=== PATIENT | male | born 1965 | race Caucasian/White ===

== ENCOUNTER → 2020-06-27 08:47 | Outpatient (CLI) | payer OTHER, SELFPAY ==
[2018-07-19 11:35] VITALS: BMI 29.7
[2020-06-27 10:28] LABS: Absolute Lymphocyte Count 1.54 X10^3/uL (0.83-4.51); Absolute Neutrophil Count 3.6 X10^3/uL (2.0-7.7); Basophil# 0.03 X10^3/uL; Basophil% 0.5 % (0-1); Eosinophil# 0.07 X10^3/uL; Eosinophils% 1.2 % (0-5); Hematocrit 51.3 % (40-54); Lymphocyte # 1.54 X10^3/ul (4.0); Lymphocyte % 26.6 % (19-41); Mean Corp Hgb Conc 33.1 g/dL (32-36); Mean Corpuscular Hgb 29.8 pg (27.0-32.0); Mean Platelet Vol. 11.2 fl (6.2-12.0); Monocyte# 0.52 X10^3/uL; NRBC Flagged by Analyzer 0 % (0-5); Neutrophil % 62.4 % (47-70); Platelet Count 233 K/mm3 (150-450); RBC Distribution Width CV 12.7 % (11.6-14.6); RBC Distribution Width SD 40.9 fl (35.1-43.9); White Blood Count 5.8 K/mm3 (4.4-11.0)
[2020-06-27 11:07] LABS: AST(SGOT) 18 U/L (15-37); Alanine Aminotransfer ALT/SGPT 29 U/L (16-61); Albumin, Serum 3.9 g/dL (3.2-5.0); Alkaline Phosphatase 84 U/L (45-117); Anion Gap 7 (5-15); BUN 12 mg/dL (7-18); BUN/Creat Ratio 10.7 RATIO (10-20); Calcium,Total 9.7 mg/dL (8.5-10.1); Chloride 105 mmol/L (98-107); Cholesterol 262 mg/dL (200); Creatinine, Serum 1.12 mg/dL (0.70-1.30); EST Glomerular Filtration Rate 72 mL/min (>60); Est Glom Filt Rate - Afr Amer 87 mL/min (>60); Globulin 3.8 g/dL (2.2-4.2); Glucose 90 mg/dL (74-106); High Density Lipoprotein 62 mg/dL; Potassium 4.2 mmol/L (3.5-5.1); Protein, Total 7.7 g/dL (6.4-8.2); Sodium Level 141 mmol/L (136-145); Thyroid Stim Hormone (TSH) 1.36 uIU/mL (0.358-3.74); Triglycerides 171 mg/dL; Very Low Density Lipoprotein 34 mg/dL (5-40)
== END ==
PROVIDERS: PCP Family Medicine; Visit Provider Family Medicine
DX: Z00.00 Encounter for general adult medical examination without abnormal findings (principal); M75.92 Shoulder lesion, unspecified, left shoulder; F32.0 Major depressive disorder, single episode, mild
CPT/HCPCS: 36415; 80053; 80061; 84443; 85025

== ENCOUNTER 2020-08-01 07:30 | Outpatient (RCR) | payer OTHER, SELFPAY ==
[2018-07-19 11:35] VITALS: BMI 29.7
--- NOTE | 2020-06-29 10:36 | HP.PTEVAL ---
Patient's Visit Information SAMANTHA LOTT is a 54 year old M referred to Physical Therapy by Dr. Ellie Valenzuela MD with a diagnosis of L shoulder lesion. Date of Evaluation: 06/29/20 Physical Therapist: Myrtle Daniels DPT - Visit Plan Frequency: 2x /Week Duration: 4 Weeks Plan: Signs and symptoms consistent with shoulder impingment- increase scapular stabilization to promote pain free ROM (flex/abd/IR) - Subjective Pt reports L shoulder pain since Jan/Feb- does not think he did anthing specific. Bothersome mostly at night when trying to sleep. hard to put on coat. Pain: superior region of shoulder. 1/10 achey, can be sharp with wrong movement 3-4/10 (overhead and below belt movements). there are some periods of no pain- sitting. denies numbness and tingling, no radiating pain. denies neck pain. sleep: sleeps in various positions, hard to get comfortable, does not wake him up at night. no pillow under arm. painful to put arm up under pillow. Meds: none. 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 has to be more aware of body mechanics- is more painful in abduction lift from ground. PMHx: unremarkable - Objective Posture: FH, RS, unable to maintain proper posture. Palpation: denies pain and tenderness ablong scpaular msucels and joint line. obseration: mild L scapular winging. ROM: shoulder flex/abd: WFL with pain, ER/IR: WFL, fucntional IR: low back bilateral with pain elbow/hand: WFL. Strength: shoulder: 4/5 all planes, elbow: 4+/5, senior qa engineer: 5/5 Scap s/s: poor. Special Tests: Neer's +, empty can+ Carolyn Terence + - Goals Goal 1:: Pt will be I with HEP and progression Goal Time Frame: 4-6 Weeks Goal 2:: Pt will report 1/10 pain for one week in order to promote I functional mobility Goal Time Frame: 4-6 Weeks Goal 3:: Pt will demonstrate improved posture for an entire treatment session in order to promote scpaular stabilization Goal Time Frame: 4-6 Weeks - Rehabilitation Potential Physical Therapy Diagnosis: Pt presents with signs and symtpoms consistent with shoulder impingement with decreased pain-free ROM, strength, and poor posture impacting ability to perform I functional mobility without pain. Rehabilitation Potential: Good - Anticipated Interventions Patient/Client Instruction: Educate patient on: Plan of Care For the Purpose of:: To improve muscle performance and motor function Therapeutic Exercise to Include: Strength training, Power training, Endurance training, Coordination, Body mechanics, Postural training, Flexibilty training, Scapular Strength/Stabilization For the Purpose of:: To increase tolerance to activity/condition/position Cryotherapy (ice pack, ice massage): Yes Thermo therapy (hot pack): Yes Thank you for the opportunity to evaluate your patient. For Medicare and Medicare HMO plans, please review the plan of care and approve it. It will need to be FAXED BACK to us at [phone] for Medicare purposes. For Medicare only, by signing this I certify the plan of care. Please let me know if there are questions or concerns regarding this plan of care. Physician Signature: Date:
--- NOTE | 2020-08-01 07:54 | HP.PTDCSUM ---
It has been my pleasure to treat SAMANTHA LOTT referred by Dr. Ellie Valenzuela MD, with the diagnosis of L shoulder lesion for a total of 10 visit(s). Discharge Date: Please see the following information for a summary of their discharge status. Subjective: Patient reports that the shoulder is a lot better- both able to do more and less pain. Does stil have a little bit pain sleeping or catches if he over extends (1-2/10). If he moves it out of the position it goes away quickly. There is nothing he can't do at this time. Does feel comfortable and confident with the exercises. Left Shoulder Pain Intensity (Out of 10): 0 % Improvement: 80 Objective/Function: Posture: good throughout session. Palpation: denies pain and tenderness ablong scpaular msucels and joint line. obseration: mild L scapular winging. ROM: shoulder flex/abd: WFL no pain, ER/IR: WFL, fucntional IR: equal side to side no pain elbow/hand: WFL. Strength: shoulder: 4+/5 all planes, elbow:5/5, sonar subsystem equipment operator: 5/5 Scap s/s:fair plus. Special Tests: Neer's +, empty can+ Hawkin Terence + Goal 1:: Pt will be I with HEP and progression Goal Progress: Goal Met Goal 2:: Pt will report 1/10 pain for one week in order to promote I functional mobility Goal Progress: Goal Met Goal 3:: Pt will demonstrate improved posture for an entire treatment session in order to promote scpaular stabilization Goal Progress: Goal Met Plan: Discharge to indep home exercise program. Encouraged to call if questions. Gave HEP including green, blue and purple band- ex: mid row, LAE, extension, IR, ER, foward raise, lateral raise, counter PU, prone I,Y,T, ball on wall. If there are questions or concerns regarding this patient's physical therapy, please feel free to call me at [phone]. Thank you for the referral of this patient. Sincerely, Myrtle Daniels DPT
== END 2020-08-01 10:38 | disposition home or self-care (01) ==
LOC: PT 07:30
PROVIDERS: PCP Family Medicine; Referring Provider Family Medicine; Visit Provider Family Medicine
DX: M75.92 Shoulder lesion, unspecified, left shoulder (principal)
CPT/HCPCS: 97110; 97162; 97164; 97530

== ENCOUNTER → 2022-03-15 | Outpatient (CLI) | payer OTHER, SELFPAY ==
--- NOTE | 2022-03-15 09:45 | STEWCON_ITS ---
Reason For Study: Left sided chest pain Stress Results Stress Echocardiogram-Perry Protocol with Protocol: Definity Maximum Predicted HR: 163 bpm Target HR: 139 bpm % Maximum Predicted HR: 92 % DurationHeart Rate Stage (mm:ss) (bpm) BP Comment Baseline 61 140/84pt denies chest pain Stage 1 3:00 95 140/72pt denies chest pain Stage 2 3:00 114 142/68Pt denies chest pain Stage 3 3:00 133 144/78Pt denies chest pain Stage 4 0:52 150 / Leg fatigue, shortness of breath. Pt denies chest pain Recovery 77 130/72Pt denies chest pain. 3ml total Definity used. Stress Duration: 9:52 mm:ss Maximum Stress HR: 150 bpm Baseline Echocardiogram Findings Stress Echo Wall motion Data Resting WM Intermediate WM Stress WM Resting Wall Motion Wall Motion Stress All segments Normal. All segments Hyperkinetic. EKG Data Baseline ECG demonstrates normal sinus rhythm with a rate of 60 beats per minute. The patient exercised according to the regular Perry protocol for a total duration of 9:52. The maximum heart rate attained was 162 beats per minute. This was 99% of maximum predicted heart rate. During stress, there were no ST or T wave changes noted to suggest ischemia. Rare PVC during exercise. Symptoms with Stress The patient experinced Dyspnea . ECHO/Stress Test Echo W/Contrast Interpretation Summary Negative stress echo for ischemia. Blunted BP response to exercise. Ordering Physician: Chaka Norris Referring Physician: Chaka Norris Performed By: Bonita Senior, ADRIAN, RVT
== END | disposition home or self-care (01) ==
PROVIDERS: PCP Family Medicine; Referring Provider Family Medicine; Visit Provider Family Medicine
DX: R07.9 Chest pain, unspecified (principal); Z82.49 Family history of ischemic heart disease and other diseases of the circulatory system
CPT/HCPCS: 93017; 93350; Q9957; A4216; C8928

== ENCOUNTER → 2022-08-20 | Outpatient (CLI) | payer OTHER, SELFPAY ==
[2022-08-20 12:08] LABS: Absolute Lymphocyte Count 2.01 X10^3/uL (0.83-4.51); Absolute Neutrophil Count 9.2 X10^3/uL (2.0-7.7); Basophil# 0.04 X10^3/uL; Basophil% 0.3 % (0-1); Eosinophil# 0.05 X10^3/uL; Eosinophils% 0.4 % (0-5); Hematocrit 48.4 % (40-54); Hemoglobin 15.9 g/dL (13.0-16.5); Lymphocyte # 2.01 X10^3/ul (0.83-4.51); Lymphocyte % 15.6 % (19-41); Mean Corp Hgb Conc 32.9 g/dL (32-36); Mean Corpuscular Volume 88.3 fL (80-94); Mean Platelet Vol. 11.5 fl (6.2-12.0); Monocyte# 1.52 X10^3/uL; Monocyte% 11.8 % (0-10); NRBC Flagged by Analyzer 0 % (0-5); Neutrophil # 9.21 X10^3/uL (2.7-7.7); Neutrophil % 71.7 % (47-70); POSITIVE DIFFERENTIAL YES; Platelet Count 239 K/mm3 (150-450); RBC Distribution Width CV 12.2 % (11.6-14.6); Red Blood Count 5.48 M/mm3 (4.6-6.2); White Blood Count 12.9 K/mm3 (4.4-11.0)
[2022-08-20 12:16] LABS: Differential Indicated SCAN CRITERIA MET
[2022-08-20 12:34] LABS: Uric Acid 6.4 mg/dL (3.5-7.2)
[2022-08-21 12:50] LABS: Pathologist Review Reviewed
== END | disposition home or self-care (01) ==
LOC: BFHLAB 10:21
PROVIDERS: PCP Family Medicine; Referring Provider Nurse Practitioner Family; Visit Provider Nurse Practitioner Family
DX: M10.9 Gout, unspecified (principal)
CPT/HCPCS: 36415; 84550; 85025

== ENCOUNTER → 2023-06-11 | Outpatient (CLI) | payer OTHER, SELFPAY ==
[2023-06-11 10:54] LABS: ALB/GLOB Ratio 1.1 RATIO (0.9-2.4); AST(SGOT) 20 U/L (15-37); Alanine Aminotransfer ALT/SGPT 21 U/L (16-61); Albumin, Serum 3.7 g/dL (3.2-5.0); Alkaline Phosphatase 90 U/L (45-117); Anion Gap 5 (5-15); BUN 14 mg/dL (7-18); BUN/Creat Ratio 12.5 RATIO (10-20); Calcium,Total 9.8 mg/dL (8.5-10.1); Chloride 109 mmol/L (98-107); Cholesterol 218 mg/dL (200); Creatinine, Serum 1.12 mg/dL (0.70-1.30); EST Glomerular Filtration Rate 71 mL/min (>60); Est Glom Filt Rate - Afr Amer 87 mL/min (>60); Globulin 3.4 g/dL (2.2-4.2); Glucose 100 mg/dL (74-106); High Density Lipoprotein 60 mg/dL; Potassium 3.9 mmol/L (3.5-5.1); Protein, Total 7.1 g/dL (6.4-8.2); Sodium Level 142 mmol/L (136-145); Triglycerides 148 mg/dL; Uric Acid 7.3 mg/dL (3.5-7.2); Very Low Density Lipoprotein 30 mg/dL (5-40)
== END | disposition home or self-care (01) ==
LOC: MTLAB 07:44
PROVIDERS: PCP Family Medicine; Referring Provider Family Medicine; Visit Provider Family Medicine
DX: E78.5 Hyperlipidemia, unspecified (principal); M10.9 Gout, unspecified
CPT/HCPCS: 36415; 80053; 80061; 84550